=== PATIENT | female | born 1960 | race Caucasian/White ===

== ENCOUNTER → 2021-08-02 12:16 | Outpatient (BNVA) | payer OTHER, MEDICARE, SELFPAY | PROVIDERS: PCP Internal Medicine ==

== ENCOUNTER → 2021-10-30 15:20 | Outpatient (BNVA) | payer MEDICARE, OTHER, SELFPAY | PROVIDERS: PCP Internal Medicine | DX: T85.848A Pain due to other internal prosthetic devices, implants and grafts, initial encounter (principal) | CPT/HCPCS: 99212 ==

== ENCOUNTER 2021-11-01 20:49 | Emergency (ER) | payer MEDICARE, OTHER, SELFPAY ==
[2021-11-01 21:07] VITALS: BP 115/82; BP 135/55; PULSE 62; PULSE 76; RESP 16; TEMP 36.1; O2SAT 96; O2SAT 98; BMI 46.5
[2021-11-01 22:37] VITALS: BP 125/40; PULSE 54; RESP 16; TEMP 36.7; O2SAT 94
[2021-11-01] MEDS: Acetaminophen 325 MG TABLET 975 MG PO (23:09)
[2021-11-01] MEDS: Lidocaine 4 % Patch ADH..PATCH 1 PATCH TRANSDERMA (23:10)
[2021-11-01] MEDS: Ketorolac Tromethamine 30 MG/ML VIAL 15 MG IM (23:10)
--- NOTE | 2021-11-01 23:14 | ED.GENADULT ---
HPI - General Adult General Chief complaint: Extremity Injury, Lower Stated complaint: right leg pain Time Seen by Provider: 11/01/21 22:30 Source: patient Mode of arrival: EMS History of Present Illness HPI narrative: 61-year-old female with history of sciatica as well as having had a nerve stimulator placed on the right aspect of her lower back. Patient states that this was for her neurogenic bladder that has since been resolved and states that she had partial removal. Patient states that her pain started Friday and has gradually worsened, she was seen by her urologist on Friday and the decision was made at that time to schedule complete removal of the stimulator as it was thought that it may be abutting her sciatic nerve. At that time she was prescribed lidocaine patches as well as tramadol but states that the pain has continued to worsen and she is had to resort to using a walker for ambulating. She denies any other bowel issues and has an indwelling catheter at baseline. Otherwise, she denies any fevers, chills, shortness of breath, chest pain/palpitations but states that the pain that radiates down the back of her right lower extremity is so significant that it causes her leg to feel weak. Related Data Previous Rx's Medication Instructions Recorded ciprofloxacin HCl 500 mg tablet 500 mg PO DAILY 7 Days #7 tab 08/02/21 (Cipro) nitrofurantoin macrocrystal 100 mg 100 mg PO BEDTIME 90 Days #90 cap 10/23/21 capsule lidocaine 5 % topical patch See Rx Instructions TOPICAL 10/30/21 (Lidoderm) .COMPLEX PRN #15 ea tramadol 50 mg tablet 50 mg PO Q8H #30 tab 10/31/21 ketorolac 10 mg tablet 10 mg PO Q6H PRN 5 Days #20 tab 11/02/21 Allergies Allergy/AdvReac Type Severity Reaction Status Date / Time bee pollen [Bee Stings] Allergy Severe ANAPHYLAXIS Verified 10/30/21 15:35 sulfamethoxazole Allergy Severe ANAPHYLAXIS Verified 10/30/21 15:35 trimethoprim Allergy Severe ANAPHYLAXIS Verified 10/30/21 15:35 divalproex sodium Allergy Mild ABNORMAL Verified 10/30/21 15:35 LFTS droperidol Allergy Mild JITTERY Verified 10/30/21 15:35 penicillin G [Penicillin G] Allergy Mild ANAPHYLAXIS Verified 10/30/21 15:35 zolmitriptan Allergy Mild TACHYCARDIA Verified 10/30/21 15:35 acetaminophen [Percocet] Allergy Unknown Unknown Verified 10/30/21 15:35 benztropine [From COGENTIN] Allergy Unknown UNKNOWN Verified 10/30/21 15:35 chocolate flavor Allergy Unknown Unknown Verified 10/30/21 15:35 penicillin V Allergy Unknown Unknown Verified 10/30/21 15:35 Penicillins Allergy Unknown RASH Verified 10/30/21 15:35 Sulfa (Sulfonamide Allergy Unknown Unknown Verified 10/30/21 15:35 Antibiotics) tetanus toxoid, adsorbed Allergy Unknown UNKNOWN Verified 10/30/21 15:35 [Tetanus Toxoid,Adsorbed] Tetanus Vaccines and Toxoid Allergy Unknown UNKNOWN Verified 10/30/21 15:35 [TETANUS] carbamazepine AdvReac Mild DOUBLE Verified 10/30/21 15:35 VISION lisdexamfetamine AdvReac Unknown GILMA Verified 10/30/21 15:35 [From VYVANSE] oxycodone [From PERCOCET] AdvReac Unknown HEADACHE Verified 10/30/21 15:35 From COGENTIN Allergy Unknown UNKNOWN Uncoded 10/30/21 15:35 Tetanus Allergy Unknown Unknown Uncoded 10/30/21 15:35 Chocolate AdvReac Mild MIGRAINE Uncoded 10/30/21 15:35 HEADACHES Review of Systems Review of Systems: Pertinent positives and negatives as stated in HPI 10 point review of systems is otherwise negative. PMFSH Past Medical History Source: nursing notes reviewed Medical History Chronic UTI Social History Social History Advance Directives: No Advance Directives Information Provided: Yes Patient : No Physical Exam Vital Signs: Vital Signs: Last Vital Signs Temp 98.1 F 11/01/21 22:37 Pulse 58 11/02/21 01:10 Resp 17 11/02/21 01:10 BP 122/94 H 11/02/21 01:10 Pulse Ox 95 11/02/21 01:10 BMI result Body Mass Index 46.5 VITAL SIGNS: Reviewed. GENERAL: Well developed, well nourished, in no acute distress. HEAD: Normocephalic/atraumatic EYES: PERRLA, EOMI OROPHARYNX: no oral lesions noted, posterior pharynx clear LUNGS: Normal breath sounds. No adventitious sounds or accessory muscle use. SpO2<94> CARDIOVASCULAR: Regular rate and rhythm without noted murmurs, no JVD or lower extremity edema. ABDOMEN: Soft, non-tender, non-distended with bowel sounds MUSCULOSKELETAL: No tenderness, deformities, or effusions noted on gross inspection, pain on palpation over gluteal site without overlying erythema or induration EXTREMITIES: No cyanosis, clubbing or edema. SKIN: Inspection of the skin reveals no rashes NEUROLOGIC: Alert and oriented x 4. Strength and sensation to light touch were grossly intact x 4. Course Course Course Narrative: 61-year-old female with history and clinical presentation consistent with right-sided sciatica. No evidence to suggest infection and low clinical suspicion for a cauda equina. Patient provided with combination analgesics as well as lidocaine patch will be re-evaluated. On re-evaluation patient is feeling much better and has good range of motion and will be discharged home in stable condition. Discharge Plan Discharge Clinical Impression: Sciatica Patient Disposition: Home, Self-Care Instructions: Sciatica (ED), Lower Back Exercises (ED) Additional Instructions: 1. Resume all home medications as prescribed. 2. Tylenol 1000 mg, orally, every 6 hours as needed for pain control. Do not exceed 4000 mg within 24 hours. 3. Lidocaine patch, these are available [id number] and should be apply to area of maximal tenderness as directed on the outside packaging. 4. Please follow-up with Urology for further management . Return to the ER for worsening symptoms. Prescriptions: New ketorolac 10 mg tablet 10 mg PO Q6H PRN (Reason: pain) 5 Days Qty: 20 RF: 0 No Action nitrofurantoin macrocrystal 100 mg capsule 100 mg PO BEDTIME 90 Days Qty: 90 RF: 2 ciprofloxacin HCl [Cipro] 500 mg tablet 500 mg PO DAILY 7 Days Qty: 7 RF: 0 lidocaine [Lidoderm] 5 % adhesive patch,medicated See Rx Instructions topical .COMPLEX PRN (Reason: pain (scale score 4-6)) Qty: 15 RF: 0 tramadol 50 mg tablet 50 mg PO Q8H Qty: 30 RF: 0 Referrals: Douglas Davila MD [Primary Care Provider] - 2 days
[2021-11-02 01:10] VITALS: BP 122/94; PULSE 58; RESP 17; O2SAT 95
== END 2021-11-02 01:49 | disposition home or self-care (01) ==
PROVIDERS: Emergency Provider Student in an Organized Health Care Education/Training Program; PCP Internal Medicine
DX: M54.31 Sciatica, right side (principal)
CPT/HCPCS: 96372; 99284; J1885

== ENCOUNTER 2021-11-19 10:59 | Outpatient (REF) | payer MEDICARE, OTHER, SELFPAY ==
--- NOTE | ~2021-11-19 | CT_ITS ---
EXAMINATION: CT PELVIS WITHOUT CONTRAST CLINICAL INFORMATION: Presence of a neurostimulator. COMPARISON: CT abdomen/pelvis dated from 06/14/2018. TECHNIQUE: Helical scanning was performed with submillimeter collimation through the pelvis. Sagittal and coronal multiplanar 2-D reconstructions were obtained. This CT examination was performed using dose optimization techniques as appropriate, variously including the following: *Automated exposure control *Adjustment of mA and/or kV according to patient size (this includes techniques or standardized protocols for targeted exams where dose is matched to indication/reason for exam; i.e. extremities or head) *Use of iterative reconstruction technique DLP: 933 mGy-cm FINDINGS: PELVIS: An abandoned neurostimulator lead terminates within the left sacral foramina at the level of S3, unchanged. A hyperattenuating tract along the insertion pathway of the neurostimulator device (2:12) is also stable. Redemonstration of a right abdominal ileal conduit. Imaged bowel appears within normal limits. The urinary bladder is adequately distended without focal abnormalities or wall thickening. No lymphadenopathy by size criteria. Normal CT appearance of the uterus and adnexa. Small fat-containing umbilical hernia. Stable postoperative changes of the abdominal wall with a midline surgical scar. Mild anasarca. An indeterminate soft tissue nodule and is scarring in the right gluteal region (4:66) are unchanged. Atherosclerotic disease. OSSEOUS STRUCTURES: No acute or aggressive osseous abnormalities. Degenerative changes of the spine, hips. CT/CT pelvis wo con IMPRESSION: Neurostimulator abandoned lead terminates within the neural foraminal of S3, similar to prior. A hyperattenuating tract along the insertion site of this device is also unchanged. Correlate clinically for superimposed infection. Redemonstration of an ileal conduit.
== END 2021-11-19 11:00 | disposition home or self-care (01) ==
LOC: HO.CT 10:59
PROVIDERS: PCP Internal Medicine
DX: Z96.82 Presence of neurostimulator (principal)
CPT/HCPCS: 72192

== ENCOUNTER 2021-12-17 07:10 | Day surgery (SDC) | payer MEDICARE, OTHER, SELFPAY ==
[2021-12-11 13:23] VITALS: BMI 44.1
--- NOTE | 2021-12-14 09:50 | P.CONAN_ITS ---
Documented by User: Alesia Mckeon NP 12/14/21 09:53 HPI - Anesthesia Eval Consult details Narrative: 61yo F for Left Interstim Lead Removal Mult Med Allergies PMFSH Active Problems Active Problems: All Active Problems (Updated 12/11/21 @ 13:22 by Milvia David RN) Pain aggravated by activities of daily living (Acute) Pelvic pain (Acute) Neurostimulator device in situ (Acute) Chronic UTI (Acute) Past Medical History Medical History (Updated 12/11/21 @ 13:22 by Milvia David RN) Arthritis Back pain CHF (congestive heart failure) Chronic UTI COPD (chronic obstructive pulmonary disease) COVID-19 vaccine series completed Diabetes MRSA (methicillin resistant Staphylococcus aureus) Port-A-Cath in place Sleep apnea Status post insertion of nerve stimulator Urinary incontinence Surgical History Surgical History (Updated 12/11/21 @ 13:22 by Milvia David RN) H/O colonoscopy History of back surgery History of bladder surgery History of carpal tunnel release of both wrists History of endometrial ablation History of esophagogastroduodenoscopy (EGD) History of pubovaginal sling History of suprapubic catheter Social History Social History Are you a primary home care physical therapist to a significant other at home: No Do you presently have visiting nurse or other home services: No Patient Tobacco Use Status: Former Tobacco user Quit Date: 1999 Tobacco use type: Cigarette Use of substances other than those prescribed or required for medical reasons: No Have you been hit, kicked, punched, or otherwise hurt by someone within the past year? If so, by whom?: No Are you DNR?: No Advance Directives: Yes Advance Directives Information Provided: Yes Advance Directives on File: Yes Advance Directives Date on File: 12/18/15 Recently lost weight without trying: No Eating poorly because of decreased appetite: No Nutrition Risks: No Nutritional Risk Poor oral hygiene: Yes (missing teeth-) Meds Allergies Allergy/AdvReac Type Severity Reaction Status Date / Time bee pollen [Bee Allergy Severe ANAPHYLAXIS Verified 10/30/21 15:35 Stings] sulfamethoxazole Allergy Severe ANAPHYLAXIS Verified 10/30/21 15:35 trimethoprim Allergy Severe ANAPHYLAXIS Verified 10/30/21 15:35 Penicillins Allergy Intermediate RASH Verified 12/10/21 14:39 divalproex sodium Allergy Mild ABNORMAL Verified 10/30/21 15:35 LFTS droperidol Allergy Mild JITTERY Verified 10/30/21 15:35 zolmitriptan Allergy Mild TACHYCARDIA Verified 10/30/21 15:35 benztropine [From Allergy Unknown UNKNOWN Verified 10/30/21 15:35 COGENTIN] chocolate flavor Allergy Unknown Unknown Verified 10/30/21 15:35 Sulfa (Sulfonamide Allergy Unknown Unknown Verified 10/30/21 15:35 Antibiotics) Tetanus Vaccines Allergy Unknown UNKNOWN Verified 10/30/21 15:35 and Toxoid [TETANUS] lisdexamfetamine AdvReac Intermediate GILMA Verified 12/10/21 14:39 [From VYVANSE] carbamazepine AdvReac Mild DOUBLE Verified 10/30/21 15:35 VISION Home Medications Medication Instructions Recorded Confirmed Last Taken Type albuterol sulfate 0.63 mg 12/11/21 12/11/21 Unknown History 0.63 mg/3 mL INHALATION Q4H PRN solution for nebulization albuterol sulfate 2 puff 12/11/21 12/11/21 Unknown History 90 mcg/actuation INHALATION Q4H PRN aerosol inhaler (ProAir HFA) amlodipine 2.5 mg 2.5 mg PO DAILY 12/11/21 12/11/21 Unknown History tablet aspirin 81 mg 81 mg PO DAILY 12/11/21 12/11/21 Unknown History tablet,delayed release atorvastatin 40 1 tab PO BEDTIME 12/11/21 12/11/21 Unknown History mg tablet balsalazide 750 3 cap PO TID 12/11/21 12/11/21 Unknown History mg capsule clonazepam 2 mg 1 tab PO BEDTIME 12/11/21 12/11/21 Unknown History tablet fluticasone 2 puff 12/11/21 12/11/21 Unknown History propionate 110 INHALATION BID mcg/actuation HFA aerosol inhaler (Flovent HFA) fremanezumab-vfrm 225 mg SUBCUT 12/11/21 12/11/21 Unknown History 225 mg/1.5 mL QMONTH subcutaneous auto-injector (Ajovy) gabapentin 300 mg 1 cap PO TID 12/11/21 12/11/21 Unknown History capsule insulin aspart 5 - 25 unit 12/11/21 12/11/21 Unknown History U-100 100 unit/mL SUBCUT TID PRN subcutaneous solution (Novolog U-100 Insulin aspart) insulin regular 500 unit SUBCUT 12/11/21 12/11/21 Unknown History hum U-500 conc Q24W 500 unit/mL subcutaneous soln (Humulin R U-500 (Concentrated) Insulin) lamotrigine 300 300 mg PO BID 12/11/21 12/11/21 Unknown History mg tablet,extended release 24 hr levothyroxine 150 150 mcg PO Q2D 12/11/21 12/11/21 Unknown History mcg tablet levothyroxine 150 225 mcg PO Q2D 12/11/21 12/11/21 Unknown History mcg tablet multivitamin 1 tab PO DAILY 12/11/21 12/11/21 Unknown History nitrofurantoin 100 mg PO 12/11/21 12/11/21 Unknown History macrocrystal 100 BEDTIME mg capsule omeprazole 40 mg 1 cap PO DAILY 12/11/21 12/11/21 Unknown History capsule,delayed release oxycodone 5 mg 5 mg PO Q6H 12/11/21 12/11/21 Unknown History tablet tiotropium 1 cap INHALATION 12/11/21 12/11/21 Unknown History bromide 18 mcg DAILY capsule with inhalation device (Spiriva with HandiHaler) zolpidem 10 mg 1 tab PO BEDTIME 12/11/21 12/11/21 Unknown History tablet Exam Exam Date and Time: December 14, 2021 0950 Height,Weight and Vital Signs: Height 5 ft 8 in Weight 131.542 kg Assessment and Plan Assessment Anesthesia Assessment: Chart Reviewed Documented by User: Joan Engel MD 12/17/21 09:56 [facility] Past Medical History Medical History (Updated 12/11/21 @ 13:22 by Milvia David RN) Arthritis Back pain CHF (congestive heart failure) Chronic UTI COPD (chronic obstructive pulmonary disease) COVID-19 vaccine series completed Diabetes MRSA (methicillin resistant Staphylococcus aureus) Port-A-Cath in place Sleep apnea Status post insertion of nerve stimulator Urinary incontinence Family History Family history of problems with anesthesia: No Surgical History Surgical History (Updated 12/11/21 @ 13:22 by Milvia David RN) H/O colonoscopy History of back surgery History of bladder surgery History of carpal tunnel release of both wrists History of endometrial ablation History of esophagogastroduodenoscopy (EGD) History of pubovaginal sling History of suprapubic catheter History of Problems with Anesthesia: No Social History Social History Are you a primary home care physical therapist to a significant other at home: No Do you presently have visiting nurse or other home services: No Patient Tobacco Use Status: Former Tobacco user Quit Date: 1999 Tobacco use type: Cigarette Use of substances other than those prescribed or required for medical reasons: No Have you been hit, kicked, punched, or otherwise hurt by someone within the past year? If so, by whom?: No Are you DNR?: No Advance Directives: Yes Advance Directives Information Provided: Yes Advance Directives on File: Yes Advance Directives Date on File: 12/18/15 Recently lost weight without trying: No Eating poorly because of decreased appetite: No Nutrition Risks: No Nutritional Risk Poor oral hygiene: Yes (missing teeth-) Meds Allergies Allergy/AdvReac Type Severity Reaction Status Date / Time bee pollen [Bee Allergy Severe ANAPHYLAXIS Verified 10/30/21 15:35 Stings] sulfamethoxazole Allergy Severe ANAPHYLAXIS Verified 10/30/21 15:35 trimethoprim Allergy Severe ANAPHYLAXIS Verified 10/30/21 15:35 Penicillins Allergy Intermediate RASH Verified 12/10/21 14:39 divalproex sodium Allergy Mild ABNORMAL Verified 10/30/21 15:35 LFTS droperidol Allergy Mild JITTERY Verified 10/30/21 15:35 zolmitriptan Allergy Mild TACHYCARDIA Verified 10/30/21 15:35 benztropine [From Allergy Unknown UNKNOWN Verified 10/30/21 15:35 COGENTIN] chocolate flavor Allergy Unknown Unknown Verified 10/30/21 15:35 Sulfa (Sulfonamide Allergy Unknown Unknown Verified 10/30/21 15:35 Antibiotics) Tetanus Vaccines Allergy Unknown UNKNOWN Verified 10/30/21 15:35 and Toxoid [TETANUS] lisdexamfetamine AdvReac Intermediate GILMA Verified 12/10/21 14:39 [From EFFIE] carbamazepine AdvReac Mild DOUBLE Verified 10/30/21 15:35 VISION Home Medications Medication Instructions Recorded Confirmed Last Taken Type albuterol sulfate 0.63 mg 12/11/21 12/11/21 Unknown History 0.63 mg/3 mL INHALATION Q4H PRN solution for nebulization albuterol sulfate 2 puff 12/11/21 12/11/21 Unknown History 90 mcg/actuation INHALATION Q4H PRN aerosol inhaler (ProAir HFA) amlodipine 2.5 mg 2.5 mg PO DAILY 12/11/21 12/11/21 Unknown History tablet aspirin 81 mg 81 mg PO DAILY 12/11/21 12/11/21 Unknown History tablet,delayed release atorvastatin 40 1 tab PO BEDTIME 12/11/21 12/11/21 Unknown History mg tablet balsalazide 750 3 cap PO TID 12/11/21 12/11/21 Unknown History mg capsule clonazepam 2 mg 1 tab PO BEDTIME 12/11/21 12/11/21 Unknown History tablet fluticasone 2 puff 12/11/21 12/11/21 Unknown History propionate 110 INHALATION BID mcg/actuation HFA aerosol inhaler (Flovent HFA) fremanezumab-vfrm 225 mg SUBCUT 12/11/21 12/11/21 Unknown History 225 mg/1.5 mL QMONTH subcutaneous auto-injector (Ajovy) gabapentin 300 mg 1 cap PO TID 12/11/21 12/11/21 Unknown History capsule insulin aspart 5 - 25 unit 12/11/21 12/11/21 Unknown History U-100 100 unit/mL SUBCUT TID PRN subcutaneous solution (Novolog U-100 Insulin aspart) insulin regular 500 unit SUBCUT 12/11/21 12/11/21 Unknown History hum U-500 conc Q24W 500 unit/mL subcutaneous soln (Humulin R U-500 (Concentrated) Insulin) lamotrigine 300 300 mg PO BID 12/11/21 12/11/21 Unknown History mg tablet,extended release 24 hr levothyroxine 150 150 mcg PO Q2D 12/11/21 12/11/21 Unknown History mcg tablet levothyroxine 150 225 mcg PO Q2D 12/11/21 12/11/21 Unknown History mcg tablet multivitamin 1 tab PO DAILY 12/11/21 12/11/21 Unknown History nitrofurantoin 100 mg PO 12/11/21 12/11/21 Unknown History macrocrystal 100 BEDTIME mg capsule omeprazole 40 mg 1 cap PO DAILY 12/11/21 12/11/21 Unknown History capsule,delayed release oxycodone 5 mg 5 mg PO Q6H 12/11/21 12/11/21 Unknown History tablet tiotropium 1 cap INHALATION 12/11/21 12/11/21 Unknown History bromide 18 mcg DAILY capsule with inhalation device (Spiriva with HandiHaler) zolpidem 10 mg 1 tab PO BEDTIME 12/11/21 12/11/21 Unknown History tablet Exam Height,Weight and Vital Signs: Height 5 ft 8 in Weight 131.542 kg Vital Signs Temp Pulse Resp BP Pulse Ox 12/17/21 08:20 97.2 F 70 18 141/40 H 94 Pertinent Lab Results Pertinent Lab Results: Lab Results 12/17/21 Range/Units 08:33 POC Glucose 214 H (60-115) mg/dL Airway Mallampati Class: II TM Dist: >3cm Neck ROM: Full Loose/Missing/Broken Teeth: Yes (Dentures. No loose teeth) Heart: RRR Lungs: CTAB Assessment and Plan Final Anesthetic Review Family History of Problems with Anesthesia: No History of Problems with Anesthesia: No NPO: Yes ASA Class: III Final Preanesthetic Review: No Changes in Pt Med Stat, Meds/Allgs Chart Reviewed, Consent Obtained/Reviewed and Anes Risks/Benef Reviewed Patient Risk: Intermediate Procedure Risk: Low Assessment/Block/Sedation in SS: Assess/Block/Sedation-SS Anesthetic Plan Anesthetic Plan: GA Disposition: Standard PACU
--- NOTE | 2021-12-14 09:50 | HO.ANESPROP2 ---
Documented by User: Alesia Mckeon NP 12/14/21 09:53 HPI - Anesthesia Eval Consult details Narrative: 61yo F for Left Interstim Lead Removal Mult Med Allergies PMFSH Active Problems Active Problems: All Active Problems (Updated 12/11/21 @ 13:22 by Milvia David RN) Pain aggravated by activities of daily living (Acute) Pelvic pain (Acute) Neurostimulator device in situ (Acute) Chronic UTI (Acute) Past Medical History Medical History (Updated 12/11/21 @ 13:22 by Milvia David RN) Arthritis Back pain CHF (congestive heart failure) Chronic UTI COPD (chronic obstructive pulmonary disease) COVID-19 vaccine series completed Diabetes MRSA (methicillin resistant Staphylococcus aureus) Port-A-Cath in place Sleep apnea Status post insertion of nerve stimulator Urinary incontinence Surgical History Surgical History (Updated 12/11/21 @ 13:22 by Milvia David RN) H/O colonoscopy History of back surgery History of bladder surgery History of carpal tunnel release of both wrists History of endometrial ablation History of esophagogastroduodenoscopy (EGD) History of pubovaginal sling History of suprapubic catheter Social History Social History Are you a primary adult day care worker to a significant other at home: No Do you presently have visiting nurse or other home services: No Patient Tobacco Use Status: Former Tobacco user Quit Date: 1999 Tobacco use type: Cigarette Use of substances other than those prescribed or required for medical reasons: No Have you been hit, kicked, punched, or otherwise hurt by someone within the past year? If so, by whom?: No Are you DNR?: No Advance Directives: Yes Advance Directives Information Provided: Yes Advance Directives on File: Yes Advance Directives Date on File: 12/18/15 Recently lost weight without trying: No Eating poorly because of decreased appetite: No Nutrition Risks: No Nutritional Risk Poor oral hygiene: Yes (missing teeth-) Meds Allergies Allergy/AdvReac Type Severity Reaction Status Date / Time bee pollen [Bee Stings] Allergy Severe ANAPHYLAXIS Verified 10/30/21 15:35 sulfamethoxazole Allergy Severe ANAPHYLAXIS Verified 10/30/21 15:35 trimethoprim Allergy Severe ANAPHYLAXIS Verified 10/30/21 15:35 Penicillins Allergy Intermediate RASH Verified 12/10/21 14:39 divalproex sodium Allergy Mild ABNORMAL Verified 10/30/21 15:35 LFTS droperidol Allergy Mild JITTERY Verified 10/30/21 15:35 zolmitriptan Allergy Mild TACHYCARDIA Verified 10/30/21 15:35 benztropine [From COGENTIN] Allergy Unknown UNKNOWN Verified 10/30/21 15:35 chocolate flavor Allergy Unknown Unknown Verified 10/30/21 15:35 Sulfa (Sulfonamide Allergy Unknown Unknown Verified 10/30/21 15:35 Antibiotics) Tetanus Vaccines and Toxoid Allergy Unknown UNKNOWN Verified 10/30/21 15:35 [TETANUS] lisdexamfetamine AdvReac Intermediate GILMA Verified 12/10/21 14:39 [From VYVANSE] carbamazepine AdvReac Mild DOUBLE Verified 10/30/21 15:35 VISION Home Medications Medication Instructions Recorded Confirmed Last Taken Type albuterol sulfate 0.63 mg/3 mL 0.63 mg INHALATION Q4H PRN 12/11/21 12/11/21 Unknown History solution for nebulization albuterol sulfate 90 mcg/actuation 2 puff INHALATION Q4H PRN 12/11/21 12/11/21 Unknown History aerosol inhaler (ProAir HFA) amlodipine 2.5 mg tablet 2.5 mg PO DAILY 12/11/21 12/11/21 Unknown History aspirin 81 mg tablet,delayed 81 mg PO DAILY 12/11/21 12/11/21 Unknown History release atorvastatin 40 mg tablet 1 tab PO BEDTIME 12/11/21 12/11/21 Unknown History balsalazide 750 mg capsule 3 cap PO TID 12/11/21 12/11/21 Unknown History clonazepam 2 mg tablet 1 tab PO BEDTIME 12/11/21 12/11/21 Unknown History fluticasone propionate 110 2 puff INHALATION BID 12/11/21 12/11/21 Unknown History mcg/actuation HFA aerosol inhaler (Flovent HFA) fremanezumab-vfrm 225 mg/1.5 mL 225 mg SUBCUT QMONTH 12/11/21 12/11/21 Unknown History subcutaneous auto-injector (Ajovy) gabapentin 300 mg capsule 1 cap PO TID 12/11/21 12/11/21 Unknown History insulin aspart U-100 100 unit/mL 5 - 25 unit SUBCUT TID PRN 12/11/21 12/11/21 Unknown History subcutaneous solution (Novolog U-100 Insulin aspart) insulin regular hum U-500 conc 500 500 unit SUBCUT Q24W 12/11/21 12/11/21 Unknown History unit/mL subcutaneous soln (Humulin R U-500 (Concentrated) Insulin) lamotrigine 300 mg tablet,extended 300 mg PO BID 12/11/21 12/11/21 Unknown History release 24 hr levothyroxine 150 mcg tablet 150 mcg PO Q2D 12/11/21 12/11/21 Unknown History levothyroxine 150 mcg tablet 225 mcg PO Q2D 12/11/21 12/11/21 Unknown History multivitamin 1 tab PO DAILY 12/11/21 12/11/21 Unknown History nitrofurantoin macrocrystal 100 mg 100 mg PO BEDTIME 12/11/21 12/11/21 Unknown History capsule omeprazole 40 mg capsule,delayed 1 cap PO DAILY 12/11/21 12/11/21 Unknown History release oxycodone 5 mg tablet 5 mg PO Q6H 12/11/21 12/11/21 Unknown History tiotropium bromide 18 mcg capsule 1 cap INHALATION DAILY 12/11/21 12/11/21 Unknown History with inhalation device (Spiriva with HandiHaler) zolpidem 10 mg tablet 1 tab PO BEDTIME 12/11/21 12/11/21 Unknown History Exam Exam Date and Time: December 14, 2021 0950 Height,Weight and Vital Signs: Height 5 ft 8 in Weight 131.542 kg Assessment and Plan Assessment Anesthesia Assessment: Chart Reviewed Documented by User: Joan Engel MD 12/17/21 09:56 [facility] Past Medical History Medical History (Updated 12/11/21 @ 13:22 by Milvia David RN) Arthritis Back pain CHF (congestive heart failure) Chronic UTI COPD (chronic obstructive pulmonary disease) COVID-19 vaccine series completed Diabetes MRSA (methicillin resistant Staphylococcus aureus) Port-A-Cath in place Sleep apnea Status post insertion of nerve stimulator Urinary incontinence Family History Family history of problems with anesthesia: No Surgical History Surgical History (Updated 12/11/21 @ 13:22 by Milvia David RN) H/O colonoscopy History of back surgery History of bladder surgery History of carpal tunnel release of both wrists History of endometrial ablation History of esophagogastroduodenoscopy (EGD) History of pubovaginal sling History of suprapubic catheter History of Problems with Anesthesia: No Social History Social History Are you a primary adult day care worker to a significant other at home: No Do you presently have visiting nurse or other home services: No Patient Tobacco Use Status: Former Tobacco user Quit Date: 1999 Tobacco use type: Cigarette Use of substances other than those prescribed or required for medical reasons: No Have you been hit, kicked, punched, or otherwise hurt by someone within the past year? If so, by whom?: No Are you DNR?: No Advance Directives: Yes Advance Directives Information Provided: Yes Advance Directives on File: Yes Advance Directives Date on File: 12/18/15 Recently lost weight without trying: No Eating poorly because of decreased appetite: No Nutrition Risks: No Nutritional Risk Poor oral hygiene: Yes (missing teeth-) Meds Allergies Allergy/AdvReac Type Severity Reaction Status Date / Time bee pollen [Bee Stings] Allergy Severe ANAPHYLAXIS Verified 10/30/21 15:35 sulfamethoxazole Allergy Severe ANAPHYLAXIS Verified 10/30/21 15:35 trimethoprim Allergy Severe ANAPHYLAXIS Verified 10/30/21 15:35 Penicillins Allergy Intermediate RASH Verified 12/10/21 14:39 divalproex sodium Allergy Mild ABNORMAL Verified 10/30/21 15:35 LFTS droperidol Allergy Mild JITTERY Verified 10/30/21 15:35 zolmitriptan Allergy Mild TACHYCARDIA Verified 10/30/21 15:35 benztropine [From COGENTIN] Allergy Unknown UNKNOWN Verified 10/30/21 15:35 chocolate flavor Allergy Unknown Unknown Verified 10/30/21 15:35 Sulfa (Sulfonamide Allergy Unknown Unknown Verified 10/30/21 15:35 Antibiotics) Tetanus Vaccines and Toxoid Allergy Unknown UNKNOWN Verified 10/30/21 15:35 [TETANUS] lisdexamfetamine AdvReac Intermediate GILMA Verified 12/10/21 14:39 [From EFFIE] carbamazepine AdvReac Mild DOUBLE Verified 10/30/21 15:35 VISION Home Medications Medication Instructions Recorded Confirmed Last Taken Type albuterol sulfate 0.63 mg/3 mL 0.63 mg INHALATION Q4H PRN 12/11/21 12/11/21 Unknown History solution for nebulization albuterol sulfate 90 mcg/actuation 2 puff INHALATION Q4H PRN 12/11/21 12/11/21 Unknown History aerosol inhaler (ProAir HFA) amlodipine 2.5 mg tablet 2.5 mg PO DAILY 12/11/21 12/11/21 Unknown History aspirin 81 mg tablet,delayed 81 mg PO DAILY 12/11/21 12/11/21 Unknown History release atorvastatin 40 mg tablet 1 tab PO BEDTIME 12/11/21 12/11/21 Unknown History balsalazide 750 mg capsule 3 cap PO TID 12/11/21 12/11/21 Unknown History clonazepam 2 mg tablet 1 tab PO BEDTIME 12/11/21 12/11/21 Unknown History fluticasone propionate 110 2 puff INHALATION BID 12/11/21 12/11/21 Unknown History mcg/actuation HFA aerosol inhaler (Flovent HFA) fremanezumab-vfrm 225 mg/1.5 mL 225 mg SUBCUT QMONTH 12/11/21 12/11/21 Unknown History subcutaneous auto-injector (Ajovy) gabapentin 300 mg capsule 1 cap PO TID 12/11/21 12/11/21 Unknown History insulin aspart U-100 100 unit/mL 5 - 25 unit SUBCUT TID PRN 12/11/21 12/11/21 Unknown History subcutaneous solution (Novolog U-100 Insulin aspart) insulin regular hum U-500 conc 500 500 unit SUBCUT Q24W 12/11/21 12/11/21 Unknown History unit/mL subcutaneous soln (Humulin R U-500 (Concentrated) Insulin) lamotrigine 300 mg tablet,extended 300 mg PO BID 12/11/21 12/11/21 Unknown History release 24 hr levothyroxine 150 mcg tablet 150 mcg PO Q2D 12/11/21 12/11/21 Unknown History levothyroxine 150 mcg tablet 225 mcg PO Q2D 12/11/21 12/11/21 Unknown History multivitamin 1 tab PO DAILY 12/11/21 12/11/21 Unknown History nitrofurantoin macrocrystal 100 mg 100 mg PO BEDTIME 12/11/21 12/11/21 Unknown History capsule omeprazole 40 mg capsule,delayed 1 cap PO DAILY 12/11/21 12/11/21 Unknown History release oxycodone 5 mg tablet 5 mg PO Q6H 12/11/21 12/11/21 Unknown History tiotropium bromide 18 mcg capsule 1 cap INHALATION DAILY 12/11/21 12/11/21 Unknown History with inhalation device (Spiriva with HandiHaler) zolpidem 10 mg tablet 1 tab PO BEDTIME 12/11/21 12/11/21 Unknown History Exam Height,Weight and Vital Signs: Height 5 ft 8 in Weight 131.542 kg Vital Signs Temp Pulse Resp BP Pulse Ox 12/17/21 08:20 97.2 F 70 18 141/40 H 94 Pertinent Lab Results Pertinent Lab Results: Lab Results 12/17/21 Range/Units 08:33 POC Glucose 214 H (60-115) mg/dL Airway Mallampati Class: II TM Dist: >3cm Neck ROM: Full Loose/Missing/Broken Teeth: Yes (Dentures. No loose teeth) Heart: RRR Lungs: CTAB Assessment and Plan Final Anesthetic Review Family History of Problems with Anesthesia: No History of Problems with Anesthesia: No NPO: Yes ASA Class: III Final Preanesthetic Review: No Changes in Pt Med Stat, Meds/Allgs Chart Reviewed, Consent Obtained/Reviewed and Anes Risks/Benef Reviewed Patient Risk: Intermediate Procedure Risk: Low Assessment/Block/Sedation in SS: Assess/Block/Sedation-SS Anesthetic Plan Anesthetic Plan: GA Disposition: Standard PACU
[2021-12-17] VITALS (14 sets, daily range): BP systolic 129–174; BP diastolic 40–73; PULSE 70–82; RESP 16–20; TEMP 36.2–36.9; O2SAT 93–98
--- NOTE | ~2021-12-17 | FL_ITS ---
EXAMINATION: XR FLUOROSCOPY WITH IMAGES CLINICAL INFORMATION: Interstim lead removal COMPARISON: CT pelvis 11/19/2021 TECHNIQUE: Fluoroscopy performed by Dr. Joe Menard. Fluoroscopy time: 0.75 minutes Cumulative total dose: 26.74 mGy Images: 3 FINDINGS: There is a surgical clamp pointed towards the neurostimulator lead mid left sacrum. FL/FL guidance in OR IMPRESSION: Fluoroscopy for urologic procedure.
[2021-12-17 08:37] LABS: Glucose, Whole Blood 214 mg/dL (60-115)
[2021-12-17] MEDS: Lactated Ringers 1,000 ML 50 ML IVCONT (08:54)
--- NOTE | 2021-12-17 09:55 | PC.NURSE ---
pt has insulin pump to left chest. per anesthesologist Dr. Engel pt can leave insulin pump on during procedure. pt requesting portacath to be accessed and flushed with heparin before removal. order obtained.
--- NOTE | 2021-12-17 10:58 | MHC.SHP ---
Pre-Procedural Eval Section A Date of Service: 12/17/21 The patient is an INPATIENT: No Changes since office visit: Yes Cold of Flu in the past 2 weeks, Yes New Medical Problems, Yes Changes in Medication and Yes Patient answered all questions The History & Physical has been completed within 30 days and I have reviewed it.: Yes Section B Chief Complaint: mechanical complication of implant Details of Present Illness: removal of left-sided InterStim Relevant Social History: None Present Medications: see Short Stay Collaborative assessment Medical History: Significant History History of Previous Operations: Relevant previous surgery/procedure and date(s) Allergies: Allergies Allergy/AdvReac Type Severity Reaction Status Date / Time bee pollen [Bee Stings] Allergy Severe ANAPHYLAXIS Verified 10/30/21 15:35 sulfamethoxazole Allergy Severe ANAPHYLAXIS Verified 10/30/21 15:35 trimethoprim Allergy Severe ANAPHYLAXIS Verified 10/30/21 15:35 Penicillins Allergy Intermediate RASH Verified 12/10/21 14:39 divalproex sodium Allergy Mild ABNORMAL Verified 10/30/21 15:35 LFTS droperidol Allergy Mild JITTERY Verified 10/30/21 15:35 zolmitriptan Allergy Mild TACHYCARDIA Verified 10/30/21 15:35 benztropine [From COGENTIN] Allergy Unknown UNKNOWN Verified 10/30/21 15:35 chocolate flavor Allergy Unknown Unknown Verified 10/30/21 15:35 Sulfa (Sulfonamide Allergy Unknown Unknown Verified 10/30/21 15:35 Antibiotics) Tetanus Vaccines and Toxoid Allergy Unknown UNKNOWN Verified 10/30/21 15:35 [TETANUS] lisdexamfetamine AdvReac Intermediate GILMA Verified 12/10/21 14:39 [From VYVANSE] carbamazepine AdvReac Mild DOUBLE Verified 10/30/21 15:35 VISION Review of Systems Sugical H&P ROS: Negative: Constitution, Cardiovascular, Respiratory, Neurological, Psychiatric, Hem-Onc, Allergic/Immunologic, Gastrointestinal, Genitourinary, Musculoskeletal, Integumentary, Endocrine and Eyes/Ears/Nose/Throat Exam Surgical H&P Exam: Normal: HEENT, Normal: Heart, Normal: Lungs, Normal: Extremities, Normal: Abdomen, Normal: Skin and Normal: Neurological Plan Diagnosis/Plan: Unchanged ( removal of S3 InterStim from left side) I have reviewed the history and physical and performed a pertinent physical examination on my patient. No changes have occurred unless specified.
--- NOTE | 2021-12-17 13:02 | W.PM.OPN ---
Operative Note Operative Note Date of Service: 12/17/21 Narrative: PreOperative Diagnosis: retained InterStim lead and generator Post Operative Diagnosis: dystrophic calcification at generator pocket side, imbedded partial lead Procedure: 1. Resection of dystrophic calcification and InterStim generator pocket side 2. Exploration for removal of InterStim lead at S3 insertion Surgeon: Dr Joe Menard Anesthesia: general Indications for procedure: 61-year-old female. Prior InterStim placement with revision many years ago - 2002. Persistent feeling of pain with an object at the InterStim pocket side. CT scan with lead coming from S3. Plan for exploration and removal of pocket side mass and attempted removal of lead S3 insertion. Procedure: After informed consent was verified the patient was brought to the operating room and placed in a supine position. Anesthesia was administered per protocol. using the cm the lead markers could be seen entering S3 in anterior superior fashion. We could not see a generator at the pocket site. Palpable mass at pocket site. Local anesthetic infiltrated around the prior incision. The incision was taken down through the skin and subcutaneous tissue. Palpable area was then resected and found to be dystrophic calcification proximally 3 cm x 2 cm in size. The dystrophic calcification was removed sharply and then the area explored and irrigated. Base of the area was cauterized try to minimize postprocedure bleeding a sponge placed. Using the cm were able to isolate the lead going and S3 on the skin. Markings were placed. Lidocaine was infiltrated. Incision was made and dissected down until we could palpate the bony prominences of the sacrum. We were unable to find any lead going into S3 and we presumed that the prior lead been CT at the foraminal level without removal of the stimulator area. That incision was closed with a running Monocryl 4-0. We then used a 3-0 Vicryl to reoppose tissue in the pocket incision. Skin was closed with a running 4-0 Monocryl. She tolerated procedure well was extubated in operating room transferred in stable condition to the recovery area. Pathology: Dystrophic calcification Drains: none
[2021-12-17 13:28] LABS: Glucose, Whole Blood 214 mg/dL (60-115)
--- NOTE | 2021-12-17 13:33 | ECG_ITS ---
Test Reason : chest pain Blood Pressure : / mmHG Vent. Rate : 075 BPM Atrial Rate : 075 BPM P-R Int : 192 ms QRS Dur : 076 ms QT Int : 422 ms P-R-T Axes : 039 -13 025 degrees QTc Int : 471 ms Normal sinus rhythm Normal ECG When compared with ECG of 14-JUN-2018 00:48, No significant change was found Referred By: Joan Engel Electronically Signed By:Jim Bañuelos
[2021-12-17] MEDS: oxyCODONE HCl Immed Release 5 MG TABLET PO (13:50)
[2021-12-17] MEDS: Acetaminophen 325 MG TABLET 650 MG PO (13:50)
[2021-12-17] MEDS: fentaNYL citrate/PF 100 MCG/2 ML VIAL 25 MCG IVPUSH ×4 (13:50→14:40)
[2021-12-17 15:24] LABS: Troponin-I High Sensitivity 6.6 ng/L (<3.5-17.0)
== END 2021-12-17 16:22 | disposition home or self-care (01) ==
PROVIDERS: Anesthesiology; PCP Internal Medicine; Visit Provider Urology
PROC: (CPT 64585; principal; 2021-12-17 09:20)
DX: T85.840A Pain due to nervous system prosthetic devices, implants and grafts, initial encounter (principal); M54.41 Lumbago with sciatica, right side; Y73.8 Miscellaneous gastroenterology and urology devices associated with adverse incidents, not elsewhere classified; Y92.9 Unspecified place or not applicable; E11.9 Type 2 diabetes mellitus without complications; M61.48 Other calcification of muscle, other site; N31.9 Neuromuscular dysfunction of bladder, unspecified; N39.498 Other specified urinary incontinence
CPT/HCPCS: 64585; 21931; 36415; 82947; 84484; 88307; 88311; 93005; J0330; J1956; J2405; J3010

== ENCOUNTER 2022-01-08 10:18 | Outpatient (REF) | payer MEDICARE, OTHER, SELFPAY | END 2022-01-08 10:19 | disposition home or self-care (01) | LOC: HO.LAB 10:18 | PROVIDERS: PCP Internal Medicine; Visit Provider Urology | DX: N39.0 Urinary tract infection, site not specified (principal); N31.9 Neuromuscular dysfunction of bladder, unspecified | CPT/HCPCS: 87086; 87088; 87186; 99212 ==

== ENCOUNTER → 2022-07-16 13:44 | Outpatient (BNVA) | payer MEDICARE, OTHER, SELFPAY | PROVIDERS: PCP Internal Medicine; Visit Provider Urology | DX: N39.0 Urinary tract infection, site not specified (principal); N31.9 Neuromuscular dysfunction of bladder, unspecified | CPT/HCPCS: Q3014 ==

== ENCOUNTER 2024-06-08 10:13 | Outpatient (AMB) | payer MEDICARE, SELFPAY ==
--- NOTE | 2024-06-08 10:27 | A.OFFVIS_ITS ---
Intake Visit Reasons: Neurogenic urinary bladder disorder Intake Note: Patient is present for neurogenic urinary bladder disorder Urology Medication:fluconazole,cefuroxime,levofloxacin,nitrofurantion Antibiotic Allergy:sulfa,penicillin, Blood Thinner:aspirin Reclamation Worker Required: No Allergies bee pollen [Bee Stings] Allergy (Severe, Verified 06/08/24 10:29) ANAPHYLAXIS sulfamethoxazole Allergy (Severe, Verified 06/08/24 10:29) ANAPHYLAXIS trimethoprim Allergy (Severe, Verified 06/08/24 10:29) ANAPHYLAXIS Penicillins Allergy (Intermediate, Verified 06/08/24 10:29) RASH divalproex sodium Allergy (Mild, Verified 06/08/24 10:29) ABNORMAL LFTS droperidol Allergy (Mild, Verified 06/08/24 10:29) JITTERY zolmitriptan Allergy (Mild, Verified 06/08/24 10:29) TACHYCARDIA benztropine [From COGENTIN] Allergy (Unknown, Verified 06/08/24 10:29) UNKNOWN chocolate flavor Allergy (Unknown, Verified 06/08/24 10:29) Unknown Sulfa (Sulfonamide Antibiotics) Allergy (Unknown, Verified 06/08/24 10:29) Unknown Tetanus Vaccines and Toxoid [TETANUS] Allergy (Unknown, Verified 06/08/24 10:29) UNKNOWN lisdexamfetamine [From VYVANSE] Adverse Reaction (Intermediate, Verified 06/08/24 10:29) GILMA carbamazepine Adverse Reaction (Mild, Verified 06/08/24 10:29) DOUBLE VISION HPI Comments Details: She is a pleasant female. She is a patient of Dr. Davila. She is seen for the following urologic conditions - neurogenic bladder with diversion - bladder leakage Last seen in 2021 Nitrofurantoin refilled Stoma pink with extension Neurogenic bladder Prior diversion with urostomy around 1999 On nitrofurantoin for suppression Does report urinating from diverted bladder which is consistent with bladder sweat production [facility] Medical History Arthritis Back pain CHF (congestive heart failure) Chronic UTI COPD (chronic obstructive pulmonary disease) COVID-19 vaccine series completed Diabetes MRSA (methicillin resistant Staphylococcus aureus) Port-A-Cath in place Sleep apnea Status post insertion of nerve stimulator Urinary incontinence Surgical History H/O colonoscopy History of back surgery History of bladder surgery History of carpal tunnel release of both wrists History of endometrial ablation History of esophagogastroduodenoscopy (EGD) History of pubovaginal sling History of suprapubic catheter Social History Are you a primary pet care worker to a significant other at home: No Do you presently have visiting nurse or other home services: No Patient Tobacco Use Status: Former Tobacco user Tobacco use type: Cigarette Advance Directives Date on File: 12/18/15 Review of Systems Const Denies chills and Denies fever(s) Card Reports no additional complaints and Denies syncope Resp Denies cough GI Denies abdominal pain and Denies heartburn Reports as per HPI and Denies change in libido Neuro Denies syncope Psych Denies change in libido Endo Denies change in libido Physical Exam Const General: cooperative, healthy appearing, comfortable and no acute distress Orientation/consciousness: patient oriented x3 HEENT Face and sinus: Yes normal facial exam Mouth: moist mucous membranes Neck Neck: Yes normal visual inspection, Yes full ROM and Yes trachea midline Chest Chest palpation & inspection: normal inspection of the chest Resp Effort & Inspection: normal respiratory effort, able to speak in complete sentences and no respiratory distress GI Inspection: Yes normal to inspection Back/Spine/Pelvis Cervical Spine: normal cervical lordosis Thoracic/Lumbar Spine: thoracic and lumbar spine normal to inspection Skin General skin exam: no rashes or lesions noted Neuro General: patient oriented x3, gait normal, tone normal and moves all extremities Extrem General: Yes normal to inspection and Yes capillary refill normal Assessment & Plan Assessment & Plan (1) Neurogenic urinary bladder disorder: Code(s): N31.9 - Neuromuscular dysfunction of bladder, unspecified Category: Medical (2) Neurostimulator device in situ: Code(s): Z96.82 - Presence of neurostimulator Category: Medical Plan 12 month follow-up Patient Instructions: Imaging studies, laboratory and physical exam results were discussed and reviewed in detail. No major barriers to patient understanding were identified. An opportunity to ask questions regarding the treatment plan was provided. All questions were answered. The patient expressed understanding and agreement with the above treatment plan. The patient is aware they should contact our office by phone for worsening of their current condition or the appearance of new urologic symptoms. Compliance is encouraged with any medications and followup testing that is ordered. It is a privilege to participate in the urologic care of your patient. If you have any questions or concerns regarding treatment for the above conditions, or other urologic issues, please do not hesitate to contact me. The office telephone contact is [phone]. This note is constructed using voice recognition software. While every effort has been made to ensure accuracy car lot attendant errors may have been included. Yours sincerely, Dr Joe Menard MD, [facility] - Urology Providers of Expert, Compassionate Care for the Genitourinary System Coding Level of Care Code Est Pt Level 4 (86675) Diagnoses Neurogenic urinary bladder disorder N31.9 Neurostimulator device in situ Z96.82
== END 2024-06-08 12:06 | disposition home or self-care (01) ==
PROVIDERS: PCP Internal Medicine; Visit Provider Urology
DX: N31.9 Neuromuscular dysfunction of bladder, unspecified (principal); Z96.82 Presence of neurostimulator
CPT/HCPCS: 99214

== ENCOUNTER → 2024-06-08 10:13 | Outpatient (BNVA) | payer MEDICARE, SELFPAY | PROVIDERS: PCP Internal Medicine; Visit Provider Urology | DX: N31.9 Neuromuscular dysfunction of bladder, unspecified (principal) | CPT/HCPCS: 99212 ==

== ENCOUNTER 2025-04-08 11:02 | Outpatient (AMB) | payer MEDICARE, SELFPAY ==
--- NOTE | 2025-04-08 11:02 | A.OFFVIS_ITS ---
Intake Visit Reasons: 1y follow up Intake Note: Patient is present for 1y f/u Urology Medication:fluconazole,cefuroxime,levofloxacin,nitrofurantion Antibiotic Allergy:sulfa,penicillin, Blood Thinner:aspirin [employer]ove[employer] Required: No Allergies bee pollen (Bee Stings) Allergy (Severe, Verified 04/08/25 11:10) ANAPHYLAXIS sulfamethoxazole Allergy (Severe, Verified 04/08/25 11:10) ANAPHYLAXIS trimethoprim Allergy (Severe, Verified 04/08/25 11:10) ANAPHYLAXIS Penicillins Allergy (Intermediate, Verified 04/08/25 11:10) RASH divalproex sodium Allergy (Mild, Verified 04/08/25 11:10) ABNORMAL LFTS droperidol Allergy (Mild, Verified 04/08/25 11:10) JITTERY zolmitriptan Allergy (Mild, Verified 04/08/25 11:10) TACHYCARDIA benztropine (From COGENTIN) Allergy (Unknown, Verified 04/08/25 11:10) UNKNOWN chocolate flavor Allergy (Unknown, Verified 04/08/25 11:10) Unknown Sulfa (Sulfonamide Antibiotics) Allergy (Unknown, Verified 04/08/25 11:10) Unknown Tetanus Vaccines and Toxoid (TETANUS) Allergy (Unknown, Verified 04/08/25 11:10) UNKNOWN lisdexamfetamine (From VYVANSE) Adverse Reaction (Intermediate, Verified 04/08/25 11:10) GILMA carbamazepine Adverse Reaction (Mild, Verified 04/08/25 11:10) DOUBLE VISION HPI Comments Details: She is a pleasant female. She is a patient of Dr. Davila. She is seen for the following urologic conditions - neurogenic bladder with diversion - bladder leakage Telemedicine Evaluation 15 min Consultation [employer] Yearly follow-up Nitrofurantoin refilled Stoma pink with extension Transportation issues Neurogenic bladder Prior diversion with urostomy around 1999 On nitrofurantoin for suppression Does report urinating from diverted bladder which is consistent with bladder sweat production [facility] Medical History Arthritis Back pain CHF (congestive heart failure) Chronic UTI COPD (chronic obstructive pulmonary disease) COVID-19 vaccine series completed Diabetes MRSA (methicillin resistant Staphylococcus aureus) Port-A-Cath in place Sleep apnea Status post insertion of nerve stimulator Urinary incontinence Surgical History H/O colonoscopy History of back surgery History of bladder surgery History of carpal tunnel release of both wrists History of endometrial ablation History of esophagogastroduodenoscopy (EGD) History of pubovaginal sling History of suprapubic catheter Social History Are you a primary pediatric acute care unit nurse to a significant other at home: No Do you presently have visiting nurse or other home services: No Patient Tobacco Use Status: Former Tobacco user Tobacco use type: Cigarette Advance Directives Date on File: 12/18/15 Review of Systems Const All systems reviewed & are unremarkable except as noted in HPI and below Reports no additional complaints Resp Reports no additional complaints GI Reports no additional complaints Reports as per HPI Musc Reports no additional complaints Physical Exam Telemedicine evaluation Appropriate responses Regular breathing rate and rhythm HEENT Head: Yes normal to inspection Ears: hearing grossly normal bilaterally Eyes General: appearance normal, both eyes and all related structures Neck Neck: Yes normal visual inspection Chest Chest palpation & inspection: normal inspection of the chest Resp Effort & Inspection: normal respiratory effort and able to speak in complete sentences Telehealth Telehealth Telehealth Platform: [employer] Location of provider rendering services: practice address Location of patient: address on file Patient Identification confirmed using: Name, : Yes Telehealth method: voice only Patient verbally consented to treatment: Yes Patient verbally consented to billing insurance company: Yes Patient informed of any privacy concerns related to visit: Yes Minutes spent on Phone/Video with Pt.: 15 Assessment & Plan Assessment & Plan (1) Chronic UTI: Code(s): N39.0 - Urinary tract infection, site not specified Category: Medical (2) Neurogenic urinary bladder disorder: Code(s): N31.9 - Neuromuscular dysfunction of bladder, unspecified Category: Medical Plan refil medications CT urogram Orders: Orders CT urogram 04/08/25 R31.0 - Gross hematuria, N31.9 - Neuromuscular dysfunction of bladder, unspecified Medications: Refilled ciprofloxacin HCl 500 mg PO BID 28 tabs 0RF 14 days N31.9 - Neuromuscular dysfunction of bladder, unspecified Discontinued cefuroxime axetil Discontinued Reason: Patient Completed Course 500 mg PO BID 7 days 14 tabs 0RF UTI solifenacin Discontinued Reason: Patient Completed Course 5 mg PO DAILY 30 days 30 tabs 7RF Patient Instructions: This note is constructed using voice recognition software. While every effort has been made to ensure accuracy commercial drafter errors may have been included. Imaging studies, laboratory and physical exam results were discussed and reviewed in detail. No major barriers to patient understanding were identified. An opportunity to ask questions regarding the treatment plan was provided. All questions were answered. The patient expressed understanding and agreement with the above treatment plan. The patient is aware they should contact our office by phone for worsening of their current condition or the appearance of new urologic symptoms. Compliance is encouraged with any medications and followup testing that is ordered. It is a privilege to participate in the urologic care of your patient. If you have any questions or concerns regarding treatment for the above conditions, or other urologic issues, please do not hesitate to contact me. The office telephone contact is [phone]. Sincerely, Dr Joe Menard MD, [facility] - Urology Compassionate Specialist Care for the Genitourinary System Coding Level of Care Code Tele Est Pt Level 4 (38602) Diagnoses Chronic UTI N39.0 Neurogenic urinary bladder disorder N31.9
--- OUTSIDE RECORDS SUMMARY | 2025-04-08 11:57 | XMS_ITS | Continuity of Care Document ---
Author Organization [facility] Address [address] [place] [address] [address] [place], [place] Phone [phone] Care Team Providers Care Glass Processing Worker Name Role Phone CARROLL MENDEZ M.D. Care Team Information Rec eiver Unavailable Social History Type Date Description Comments Sex Unknown
== END 2025-04-08 11:43 | disposition home or self-care (01) ==
LOC: HO.HUSH 11:02
PROVIDERS: PCP Internal Medicine; Visit Provider Urology
DX: N39.0 Urinary tract infection, site not specified (principal); N31.9 Neuromuscular dysfunction of bladder, unspecified
CPT/HCPCS: 99214

== ENCOUNTER → 2025-04-08 11:02 | Outpatient (BNVA) | payer MEDICARE, SELFPAY | PROVIDERS: PCP Internal Medicine; Visit Provider Urology ==